=== PATIENT | male | born 1985 | race Caucasian/White ===

== ENCOUNTER 2016-06-02 11:50 | Inpatient (IN) | payer OTHER ==
[~2016-06-02] VITALS: Ht 185.4 cm; Wt 88.5 kg
[~2016-06-02 11:50] MED LIST: ANT25 PO; HUMALOG100 U/ML; LANTUS100 U/ML
[2016-06-02 12:52] LABS: BASOPHIL % 0.4 % (0-2); PLATELET COUNT 231 x10^3mcL (130-400); RED CELL DISTRIBUTION WIDTH 13.7 % (11.5-14.5)
[2016-06-02 13:15] LABS: ALKALINE PHOSPHATASE 128 U/L (46-116); ALT/SGPT 16 U/L (16-63); AST/SGOT 11 U/L (15-37); BILIRUBIN TOTAL 0.5 mg/dL (0.20-1.00); CARBON DIOXIDE 26.6 mmol/L (21-32); CHLORIDE SERUM 100 mmol/L (98-107); GFR1 > 60 mL/min; GLUCOSE SERUM 415 mg/dL (74-106); LIPASE 83 IU/L (73-393); POTASSIUM SERUM 4.1 mmol/L (3.5-5.1); SODIUM SERUM 137 mmol/L (136-145); TOTAL PROTEIN, SERUM 6.8 g/dL (6.4-8.2)
[2016-06-02 13:18] LABS: ALBUMIN 3.3 g/dL (3.4-5.0); AMYLASE 19 U/L (25-115)
[2016-06-02] MEDS ORDERED: HUMALOG100 U/ML SC (15:04)
[2016-06-02 16:45] VITALS: BP 115/81
[2016-06-02 17:40] VITALS: BP 115/75
[2016-06-02 20:31] VITALS: BP 102/66
[2016-06-02 22:24] LABS: microscopic required? YES; urine erythrocyte TRACE (NEGATIVE)
[2016-06-02 22:37] LABS: AMPHETAMINE QUAL UR NONE DETECTED (NEG <=1000)
[2016-06-03 05:34] VITALS: BP 119/71
[2016-06-03 05:37] VITALS: BP 105/65
[2016-06-03 05:50] LABS: BASOPHIL % 0.2 % (0-2); PLATELET COUNT 223 x10^3mcL (130-400); RED CELL DISTRIBUTION WIDTH 13.7 % (11.5-14.5)
[2016-06-03 06:12] LABS: CALCIUM 8.4 mg/dL (8.5-10.1); CARBON DIOXIDE 26.1 mmol/L (21-32); CHLORIDE SERUM 108 mmol/L (98-107); CREATININE SERUM 0.6 mg/dL (0.7-1.3); GFR1 > 60 mL/min; GLUCOSE SERUM 80 mg/dL (74-106); MAGNESIUM 1.9 mg/dL (1.8-2.4); PHOSPHOROUS 3.8 mg/dL (2.5-4.9); POTASSIUM SERUM 3.7 mmol/L (3.5-5.1); SODIUM SERUM 142 mmol/L (136-145)
[2016-06-03 08:35] VITALS: BP 102/65
[2016-06-03 13:26] VITALS: BP 119/83
[2016-06-03 16:35] VITALS: BP 102/71
[2016-06-03 22:16] VITALS: BP 117/83
[2016-06-04 06:11] VITALS: BP 129/84
[2016-06-04 06:31] LABS: CALCIUM 8.7 mg/dL (8.5-10.1); CARBON DIOXIDE 29.6 mmol/L (21-32); CHLORIDE SERUM 110 mmol/L (98-107); CREATININE SERUM 0.7 mg/dL (0.7-1.3); GFR1 > 60 mL/min; GLUCOSE SERUM 116 mg/dL (74-106); MAGNESIUM 1.7 mg/dL (1.8-2.4); PHOSPHOROUS 2.8 mg/dL (2.5-4.9); POTASSIUM SERUM 4.1 mmol/L (3.5-5.1); SODIUM SERUM 147 mmol/L (136-145)
[2016-06-04 06:34] LABS: BASOPHIL % 0.3 % (0-2); PLATELET COUNT 227 x10^3mcL (130-400); RED CELL DISTRIBUTION WIDTH 13.9 % (11.5-14.5)
[2016-06-04 08:25] VITALS: BP 115/68
[2016-06-04 12:39] VITALS: BP 136/88
[2016-06-04] MEDS ORDERED: HUMALOG100 U/ML SC (13:05)
[2016-06-04] MEDS ORDERED: LANTUS SOLOS100 U/M1 SQ (13:11)
[2016-06-04] MEDS ORDERED: COMFORT EZ MC (13:13)
[2016-06-04] MEDS ORDERED: FLAGYL500 MG PO (14:44)
[2016-06-04] MEDS ORDERED: LAC PO (14:44)
== END 2016-06-04 16:08 | disposition home or self-care (01) | DRG 48 ==
LOC: ED 11:50 → DU 14:35
PROVIDERS: Emergency Medicine; ADMIT Family Medicine
DX: E10.43 Type 1 diabetes mellitus with diabetic autonomic (poly)neuropathy (principal); N17.0 Acute kidney failure with tubular necrosis; E44.0 Moderate protein-calorie malnutrition; E10.65 Type 1 diabetes mellitus with hyperglycemia; K31.84 Gastroparesis; R03.0 Elevated blood-pressure reading, without diagnosis of hypertension; Z79.4 Long term (current) use of insulin; Z68.25 Body mass index [BMI] 25.0-25.9, adult
CPT/HCPCS: 80307; 83880; 87046; 87046-59; J1815; J2270; J2405; J3475; J7030; J7042; J8597; Q0092

== ENCOUNTER 2016-07-21 13:32 | Inpatient (IN) | payer OTHER ==
[~2016-07-21] VITALS: Ht 185.4 cm; Wt 88.6 kg
[~2016-07-21 13:32] MED LIST changes: +COMFORT EZ MC; +FLAGYL500 MG PO; +HUMALOG100 U/ML SC; +LAC PO; +LANTUS SOLOS100 U/M1 SQ
--- NOTE | 2016-07-21 13:54 | NUR ---
PT BIB SELF C/C CP SOB AND DIZZINESS X 2 DAYS PLACED ON MONITOR AWAITING FOR DR TO YOL[place]
[2016-07-21 14:36] LABS: BASOPHIL % 4.8 % (0-2); PLATELET COUNT 239 x10^3mcL (130-400); RED CELL DISTRIBUTION WIDTH 12.9 % (11.5-14.5)
[2016-07-21 14:45] LABS: CALCIUM 9.3 mg/dL (8.5-10.1); CARBON DIOXIDE 23.5 mmol/L (21-32); CHLORIDE SERUM 103 mmol/L (98-107); GFR1 > 60 mL/min; GLUCOSE SERUM 314 mg/dL (74-106); POTASSIUM SERUM 3.5 mmol/L (3.5-5.1); SODIUM SERUM 141 mmol/L (136-145)
[2016-07-21 14:49] LABS: ALBUMIN 3.5 g/dL (3.4-5.0); ALKALINE PHOSPHATASE 118 U/L (46-116); ALT/SGPT 20 U/L (16-63); AST/SGOT 9 U/L (15-37); BILIRUBIN TOTAL 0.57 mg/dL (0.20-1.00)
--- NOTE | 2016-07-21 15:09 | NUR ---
DR WILKS AT BEDSIDE TO GO OVER PLAN OF CARE
[2016-07-21 15:17] LABS: microscopic required? YES; urine erythrocyte TRACE (NEGATIVE)
[2016-07-21] MEDS ORDERED: EPZICOM1 TAB (15:33)
[2016-07-21] MEDS ORDERED: LANTUS SOLOS100 U/M1 SQ (15:33)
[2016-07-21] MEDS ORDERED: HUMALOG100 U/ML SC (15:33)
[2016-07-21 16:48] VITALS: BP 120/75
--- NOTE | 2016-07-21 16:48 | NUR ---
AWAITING FOR ROOM PT DENIES PAIN OR DISCOMFORT
--- NOTE | 2016-07-21 17:06 | NUR ---
PLEASE ENTER FULL NAMES OF SILVICULTURIST/RN Patient data collected by (SILVICULTURIST):SYDNI UP Assessment reviewed and completed by (RN): ALCIDES REYNA
[2016-07-21 17:20] LABS: T3 TOTAL 0.7 ng/mL
[2016-07-21 17:20] LABS: AMPHETAMINE QUAL UR NONE DETECTED (NEG <=1000)
[2016-07-21 17:21] LABS: MAGNESIUM 1.8 mg/dL (1.8-2.4); PHOSPHOROUS 1.7 mg/dL (2.5-4.9)
[2016-07-21 17:23] LABS: CHOLESTEROL/HDL RATIO 5.5
[2016-07-21 17:28] LABS: FREE T4 1.27 ng/dL (0.76-1.46)
--- NOTE | 2016-07-21 17:52 | NUR ---
PT ADMIT TO TELE ROOM 222B GAVE REPORT TO DULCE MARIA
--- NOTE | 2016-07-21 18:19 | NUR ---
Pt ARRIVED ON THE FLOOR.
[2016-07-21 19:17] VITALS: BP 118/77
--- NOTE | 2016-07-21 19:24 | NUR ---
ENDORSED PT TO DENISE SWANSON
--- NOTE | 2016-07-21 20:10 | NUR ---
PT IS AAOX4. ON TELE 32 NSR. SCDS WERE PLACED ON THE PT PER REQUEST. CTA ON RA WITH. BOWEL SOUNDS ACTIVE. THERE IS AN IV IN THE LAC THAT IS RUNNING 100 ML/HR NS. NO DISTRESS NOTED AT THIS TIME. CALL LIGHT WITHIN REACH. WILL CONTINUE TO MONITOR.
--- NOTE | 2016-07-21 21:29 | NUR ---
PT STATED PAIN 6/10 CHEST AREA SO MEDICATED WITH NORCO PER EMAR. PT BS WAS 283, I GAVE THE SCHEDULED LEVEMIR 20 U BUT DID NOT GIVE COVERAGE BECAUSE THE PT WILL NOT BE EATING AND THERE HAVE BEEN POOR OUTCOMES IN THE PAST WHEN WE STACK REGULAR INSULIN AND LEVEMIR. WILL CONTINUE TO MONITOR.
[2016-07-21 22:02] VITALS: BP 124/82
--- NOTE | 2016-07-22 02:23 | NUR ---
PT BS WAS 59. GAVE APPLE JUICE WITH 2 SUGAR PACKETS AND SNACKS. CHECKED BS SUGAR 15 MIN LATER. BS 220.
[2016-07-22 05:28] VITALS: BP 111/74
[2016-07-22 05:29] VITALS: BP 111/74
[2016-07-22 05:31] VITALS: BP 111/74
[2016-07-22 06:01] LABS: BASOPHIL % 0.5 % (0-2); PLATELET COUNT 188 x10^3mcL (130-400); RED CELL DISTRIBUTION WIDTH 13.9 % (11.5-14.5)
[2016-07-22 06:24] LABS: CALCIUM 8.8 mg/dL (8.5-10.1); CARBON DIOXIDE 27.7 mmol/L (21-32); CHLORIDE SERUM 109 mmol/L (98-107); CREATININE SERUM 0.8 mg/dL (0.7-1.3); GFR1 > 60 mL/min; GLUCOSE SERUM 165 mg/dL (74-106); MAGNESIUM 1.8 mg/dL (1.8-2.4); PHOSPHOROUS 4.2 mg/dL (2.5-4.9); POTASSIUM SERUM 3.1 mmol/L (3.5-5.1); SODIUM SERUM 144 mmol/L (136-145)
--- NOTE | 2016-07-22 06:51 | NUR ---
PT IS SLEEPING IN BED. NO ACUTE DISTRESS NOTED. ALL NEEDS HAVE BEEN MET. WILL ENDORSE TO MORNING SHIFT.
--- NOTE | 2016-07-22 08:00 | NUR ---
A/A/OX3; DENIED CHEST PAIN NOW. TELE#37; SR; HR = 93. NO RSP DISTRESS ON RA. TOLERATED DIET WELL. AMBULATORY. POTASSIUM LEVEL 3.1; KCL 40 MEQ PO WOULD BE GIVEN. IVF OF NS 100CC/HR INFUSING WELL TO LAC. IV SITE CLEAN. CALL LIGHT IN REACH.
--- NOTE | 2016-07-22 08:45 | NUR ---
DR. MITCHELL AND MEDICAL TEAM MADE MORNING ROUND. PLAN OF CARE DISCUSSED WITH PATIENT, ENCLUDED WITH DR. URIBE, MATH COACH CONSULTATION FOR CHEST PAIN. PATIENT AGREED WITH PLAN OF CARE.
[2016-07-22 10:09] VITALS: BP 109/69
[2016-07-22 14:50] VITALS: BP 108/84
[2016-07-22 17:26] VITALS: BP 117/82
--- NOTE | 2016-07-22 19:00 | NUR ---
NO C/O CHEST PAIN THIS SHIFT. TOLERATED DIET WELL. VOID [id number] URINE. AND BM X1. ENDORSED CARE TO NOC NURSE.
--- NOTE | 2016-07-22 19:50 | NUR ---
PT RECIEVED SLEEPING SOUNDLY,AAO REG RESP NO SOB,PT ON TELE MONITOR AND IN NSR NO ACUTE DISTRESS NOTICE AT THIS TIME,MADE COMFORTABLE IN BED,KEPT CLEAN AND DRY TO TOUCH,CALL LIGHT EASY REACHED AND WILL CONTINUE TO MONITOR.
[2016-07-23 05:14] VITALS: BP 122/66
[2016-07-23 07:15] LABS: CALCIUM 8.7 mg/dL (8.5-10.1); CARBON DIOXIDE 27.5 mmol/L (21-32); CHLORIDE SERUM 110 mmol/L (98-107); CREATININE SERUM 0.7 mg/dL (0.7-1.3); GFR1 > 60 mL/min; GLUCOSE SERUM 127 mg/dL (74-106); POTASSIUM SERUM 3.1 mmol/L (3.5-5.1); SODIUM SERUM 144 mmol/L (136-145)
--- NOTE | 2016-07-23 08:00 | NUR ---
AWAKE AND ALERT. TEMP 97.9. TELE #37 SINUS RHYTHM RATE 77. DENIES CHEST PAIN OR DIZZINESS. RESP 18 EVEN. BREATH SOUNDS CLEAR. PULSE OX 100% RA. ABD SOFT, BOWEL TONES PRESENT. VOIDING QS. NO EDEMA. PULSES PRESENT. SCD IN PLACE. IV PATENT LAC INFUSING NORMAL SALINE 10CC/HR. SIDE RAILS UP X2. CALL LIGHT IN REACH.
--- NOTE | 2016-07-23 09:50 | NUR ---
DR MARIE AND MEDICAL TEAM IN ON ROUNDS. CHARGE AND PRIMARY NURSE PRESENT. REVIEWED PLAN OF CARE, FOR DISCHARGE HOME TODAY. VERBALIZED UNDERSTANDING.
--- NOTE | 2016-07-23 12:00 | NUR ---
TAL=[id number]. RISS COVERAGE 6 UNITS SQ. REVIEWED DIABETIC HOME CARE. REPORTS "HAS BEEN DIABETIC SINCE AGE 4, HAS HAD INSULIN PUMP BEFORE BUT INSURANCE WILL NO LONGER COVER IT SO I TAKE LANTUS AND HUMALOG. I CHECK MY SUGAR 4 TIMES A DAY." REVIEWED MEDS, HYPO/HYPER GLYCEMIC REACTIONS AND NEED TO CARRY GLUCOSE TABLETS WITH HIM. PT STATES "I DO AND I HAVE A MEDICAL ALERT BRACELET."
[2016-07-23] MEDS ORDERED: COMFORT EZ MC (12:15)
[2016-07-23] MEDS ORDERED: ATORVASTATIN CA40 M1 PO (12:16)
[2016-07-23] MEDS ORDERED: HUMALOG100 U/ML SC (12:20)
[2016-07-23] MEDS ORDERED: LANTUS SOLOS100 U/M1 SQ (12:21)
[2016-07-23] MEDS ORDERED: [UNRECOGNIZED DRUG - OTHER] MC (12:22)
[2016-07-23] MEDS ORDERED: IBUPROFEN600 MG PO (12:24)
[2016-07-23 13:03] VITALS: BP 119/88
--- NOTE | 2016-07-23 16:00 | NUR ---
DR JACOBO COMPLETED. DC PACKET. REVIEWED WITH PT. MEDS UPDATED. 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 MEDS REVIEWED WITH PT. VERBALIZED UNDERSTANDING. TELE REMOVED AND RETURNED TO TELE UNIT. IV REMOVED CATH TIP INTACT. ARMBAND REMOVED. DC TO LOBBY WITH BELONGINGS AT THIS TIME.
== END 2016-07-23 16:00 | disposition home or self-care (01) | DRG 203 ==
LOC: ED 13:32 → DU 15:18 → MU 07-23 11:31
PROVIDERS: Emergency Medicine; ADMIT Family Medicine
DX: M94.0 Chondrocostal junction syndrome [Tietze] (principal); D68.69 Other thrombophilia; E11.65 Type 2 diabetes mellitus with hyperglycemia; E83.39 Other disorders of phosphorus metabolism; E86.0 Dehydration; E78.2 Mixed hyperlipidemia; Z79.4 Long term (current) use of insulin; F32.9 Major depressive disorder, single episode, unspecified; Z88.0 Allergy status to penicillin; Z82.49 Family history of ischemic heart disease and other diseases of the circulatory system; Z84.89 Family history of other specified conditions; Z83.3 Family history of diabetes mellitus
CPT/HCPCS: 83880; 84439; 85378; 94150; C9113; J1815; J1885; J1956; J7030; Q0092

== ENCOUNTER 2016-09-24 08:51 | Emergency (ER) | payer SELFPAY ==
[~2016-09-24] VITALS: Ht 185.4 cm; Wt 88.1 kg
[~2016-09-24 08:51] MED LIST changes: +ATORVASTATIN CA40 M1 PO; +EPZICOM1 TAB; +IBUPROFEN600 MG PO; +[UNRECOGNIZED DRUG - OTHER] MC
[2016-09-24 08:55] VITALS: BP 128/81
== END 2016-09-24 09:31 | disposition home or self-care (01) ==
LOC: ED 08:51
DX: S60.812A Abrasion of left wrist, initial encounter (principal); E11.9 Type 2 diabetes mellitus without complications; I10 Essential (primary) hypertension; Z20.89 Contact with and (suspected) exposure to other communicable diseases; Z79.4 Long term (current) use of insulin; B58.9 Toxoplasmosis, unspecified; W55.03XA Scratched by cat, initial encounter; Y93.89 Activity, other specified; Y99.8 Other external cause status; Y92.89 Other specified places as the place of occurrence of the external cause

== ENCOUNTER 2016-10-05 08:56 | Inpatient (IN) | payer MEDICAID ==
[~2016-10-05] VITALS: Ht 185.4 cm; Wt 87.6 kg
[2016-10-05 10:29] LABS: PLATELET COUNT 204 x10^3mcL (130-400); RED CELL DISTRIBUTION WIDTH 12.9 % (11.5-14.5)
[2016-10-05 10:36] LABS: CALCIUM 8.5 mg/dL (8.5-10.1); CARBON DIOXIDE 26.4 mmol/L (21-32); CHLORIDE SERUM 95 mmol/L (98-107); CREATININE SERUM 1.2 mg/dL (0.7-1.3); GFR1 > 60 mL/min; POTASSIUM SERUM 5.1 mmol/L (3.5-5.1); SODIUM SERUM 133 mmol/L (136-145)
[2016-10-05 10:37] LABS: ALBUMIN 3.3 g/dL (3.4-5.0); ALKALINE PHOSPHATASE 124 U/L (46-116); ALT/SGPT 17 U/L (16-63); AST/SGOT 13 U/L (15-37); BILIRUBIN TOTAL 0.51 mg/dL (0.20-1.00); LIPASE 88 IU/L (73-393); TOTAL PROTEIN, SERUM 6.6 g/dL (6.4-8.2)
[2016-10-05 10:54] LABS: GLUCOSE SERUM 857 mg/dL (74-106)
[2016-10-05] MEDS ORDERED: LANTI SQ (11:36)
[2016-10-05] MEDS ORDERED: HUMALOG100 U/ML SC (11:37)
[2016-10-05 11:45] LABS: microscopic required? NO
[2016-10-05 12:11] LABS: UA SPECIFIC GRAVITY <=1.005 (1.005-1.035); urine erythrocyte NEGATIVE (NEGATIVE)
[2016-10-05 12:21] LABS: AMPHETAMINE QUAL UR NONE DETECTED (NEG <=1000)
[2016-10-05 12:33] LABS: CHOLESTEROL/HDL RATIO 6.5; MAGNESIUM 1.8 mg/dL (1.8-2.4); PHOSPHOROUS 3.5 mg/dL (2.5-4.9)
[2016-10-05 12:40] LABS: T3 TOTAL 0.78 ng/mL
[2016-10-05 12:45] VITALS: BP 132/86
[2016-10-05 13:04] LABS: FREE T4 1.27 ng/dL (0.76-1.46); FREE THYROXINE INDEX 2.4 ug/dL (1.4-4.5)
[2016-10-05 16:25] VITALS: BP 99/59
[2016-10-05 17:01] LABS: CALCIUM 8.2 mg/dL (8.5-10.1); CHLORIDE SERUM 106 mmol/L (98-107); CREATININE SERUM 0.9 mg/dL (0.7-1.3); GFR1 > 60 mL/min; GLUCOSE SERUM 188 mg/dL (74-106); POTASSIUM SERUM 4.1 mmol/L (3.5-5.1); SODIUM SERUM 144 mmol/L (136-145)
[2016-10-05 22:22] VITALS: BP 112/74
[2016-10-06 01:32] VITALS: Ht 185.4 cm; Wt 87.6 kg
[2016-10-06 04:54] VITALS: BP 120/86
[2016-10-06 06:07] LABS: PLATELET COUNT 209 x10^3mcL (130-400); RED CELL DISTRIBUTION WIDTH 12.8 % (11.5-14.5)
[2016-10-06 06:20] LABS: CALCIUM 8.7 mg/dL (8.5-10.1); CARBON DIOXIDE 31.5 mmol/L (21-32); CHLORIDE SERUM 108 mmol/L (98-107); CREATININE SERUM 0.7 mg/dL (0.7-1.3); GFR1 > 60 mL/min; GLUCOSE SERUM 138 mg/dL (74-106); MAGNESIUM 1.8 mg/dL (1.8-2.4); POTASSIUM SERUM 3.9 mmol/L (3.5-5.1); SODIUM SERUM 145 mmol/L (136-145)
[2016-10-06 07:57] VITALS: BP 124/78
[2016-10-06 13:18] VITALS: BP 123/96
[2016-10-06 17:33] VITALS: BP 129/86
[2016-10-06 22:52] VITALS: BP 122/77
[2016-10-07 05:30] VITALS: BP 96/59
[2016-10-07 08:15] VITALS: BP 118/69
[2016-10-07] MEDS ORDERED: CEL20 PO (12:32)
[2016-10-07] MEDS ORDERED: ACCU-CHEK1 EACH MC (14:07)
[2016-10-07] MEDS ORDERED: BLOOD GLUCOSE1 EACH MC ×2 (14:07→21:06)
[2016-10-07 14:14] VITALS: BP 116/74
[2016-10-07] MEDS ORDERED: HUMALOG100 U/ML SC (17:23)
[2016-10-07] MEDS ORDERED: LANTUS SOLOS100 U/M1 SQ (17:23)
[2016-10-07] MEDS ORDERED: LEXAPRO10 MG PO ×2 (17:24→17:25)
== END 2016-10-07 15:39 | disposition home or self-care (01) | DRG 420 ==
LOC: ED 08:56 → DU 11:20 → MU 14:59 → DU 15:00
PROVIDERS: Emergency Medicine; Family Medicine; ADMIT Family Medicine
DX: E11.00 Type 2 diabetes mellitus with hyperosmolarity without nonketotic hyperglycemic-hyperosmolar coma (NKHHC) (principal); N17.0 Acute kidney failure with tubular necrosis; E44.1 Mild protein-calorie malnutrition; E87.1 Hypo-osmolality and hyponatremia; E78.2 Mixed hyperlipidemia; F33.9 Major depressive disorder, recurrent, unspecified; Z79.4 Long term (current) use of insulin; Z68.25 Body mass index [BMI] 25.0-25.9, adult; Z91.5 Personal history of self-harm
CPT/HCPCS: 36600; 83880; 84439; J1815; J7030; Q0092

== ENCOUNTER 2016-11-04 10:07 | Emergency (ER) | payer OTHER ==
[~2016-11-04] VITALS: Ht 185.4 cm; Wt 87.1 kg
[~2016-11-04 10:07] MED LIST changes: +ACCU-CHEK1 EACH MC; +BLOOD GLUCOSE1 EACH MC; +CEL20 PO; +LANTI SQ; +LEXAPRO10 MG PO
[2016-11-04 11:30] LABS: BASOPHIL % 0.4 % (0-2); PLATELET COUNT 308 x10^3mcL (130-400); RED CELL DISTRIBUTION WIDTH 13.5 % (11.5-14.5)
[2016-11-04 11:57] LABS: ALBUMIN 3.9 g/dL (3.4-5.0); ALKALINE PHOSPHATASE 177 U/L (46-116); ALT/SGPT 37 U/L (16-63); AST/SGOT 16 U/L (15-37); BILIRUBIN TOTAL 0.84 mg/dL (0.20-1.00); CALCIUM 9.7 mg/dL (8.5-10.1); CARBON DIOXIDE 32.1 mmol/L (21-32); CHLORIDE SERUM 96 mmol/L (98-107); GFR1 > 60 mL/min; LIPASE 95 IU/L (73-393); POTASSIUM SERUM 4.6 mmol/L (3.5-5.1); SODIUM SERUM 136 mmol/L (136-145)
[2016-11-04 12:00] LABS: GLUCOSE SERUM 569 mg/dL (74-106); TOTAL PROTEIN, SERUM 8.4 g/dL (6.4-8.2)
[2016-11-04 14:46] LABS: microscopic required? NO
[2016-11-04 15:07] LABS: T3 TOTAL 0.89 ng/mL
[2016-11-04 15:25] LABS: MAGNESIUM 2.4 mg/dL (1.8-2.4); PHOSPHOROUS 3.7 mg/dL (2.5-4.9)
[2016-11-04 15:27] LABS: CHOLESTEROL/HDL RATIO 5.4; FREE T4 1.07 ng/dL (0.76-1.46); FREE THYROXINE INDEX 2.8 ug/dL (1.4-4.5); T4(THYROXINE) 7.6 ug/dL (4.7-13.3)
[2016-11-04 15:29] LABS: UA SPECIFIC GRAVITY <=1.005 (1.005-1.035); urine erythrocyte NEGATIVE (NEGATIVE)
[2016-11-04 15:37] LABS: AMPHETAMINE QUAL UR NONE DETECTED (NEG <=1000)
[2016-11-04 19:01] VITALS: BP 112/70
== END 2016-11-04 19:01 | disposition home or self-care (01) ==
LOC: ED 10:07
PROVIDERS: Emergency Medicine; Family Medicine
DX: E10.65 Type 1 diabetes mellitus with hyperglycemia (principal); Z88.0 Allergy status to penicillin; G43.A1 Cyclical vomiting, in migraine, intractable; E86.0 Dehydration; F32.9 Major depressive disorder, single episode, unspecified
CPT/HCPCS: 82962; 83880; 84439; J1815; J2405; J7030; Q0092

== ENCOUNTER 2016-11-23 19:36 | Emergency (ER) | payer OTHER ==
[2016-11-23 22:40] VITALS: BP 134/90
== END 2016-11-23 22:40 | disposition home or self-care (01) ==
LOC: ED 19:36
DX: S90.851A Superficial foreign body, right foot, initial encounter (principal); E10.9 Type 1 diabetes mellitus without complications; Z79.4 Long term (current) use of insulin; W45.8XXA Other foreign body or object entering through skin, initial encounter; Y93.89 Activity, other specified; Y92.89 Other specified places as the place of occurrence of the external cause; Y99.8 Other external cause status
CPT/HCPCS: J2001

== ENCOUNTER 2016-12-05 13:04 | Inpatient (IN) | payer OTHER ==
[~2016-12-05] VITALS: Ht 185.4 cm; Wt 100.4 kg
--- NOTE | 2016-12-05 13:32 | NUR ---
PT GIVEN D50 IVP FOR LOW BS.
--- NOTE | 2016-12-05 13:58 | NUR ---
DR VO AT BEDSIDE FOR MSE
--- NOTE | 2016-12-05 14:00 | NUR ---
PT MORE ALERT NOW, SANDWICH AND OJ GIVEN OK PER DR VO PT SITTING UPRIGHT ASYMPTOMATIC EATING ON HIS OWN. WILL MONITOR
[2016-12-05 14:28] LABS: BASOPHIL % 0.5 % (0-2); PLATELET COUNT 321 x10^3mcL (130-400); RED CELL DISTRIBUTION WIDTH 13.5 % (11.5-14.5)
[2016-12-05 14:31] LABS: CALCIUM 9.4 mg/dL (8.5-10.1); CARBON DIOXIDE 29.7 mmol/L (21-32); CHLORIDE SERUM 107 mmol/L (98-107); CREATININE SERUM 0.7 mg/dL (0.7-1.3); GFR1 > 60 mL/min; GLUCOSE SERUM 99 mg/dL (74-106); POTASSIUM SERUM 3.1 mmol/L (3.5-5.1); SODIUM SERUM 143 mmol/L (136-145)
[2016-12-05 14:38] LABS: ALBUMIN 3.6 g/dL (3.4-5.0); ALKALINE PHOSPHATASE 101 U/L (46-116); ALT/SGPT 31 U/L (16-63); AST/SGOT 16 U/L (15-37); BILIRUBIN TOTAL 0.2 mg/dL (0.20-1.00); TOTAL PROTEIN, SERUM 7.7 g/dL (6.4-8.2)
--- NOTE | 2016-12-05 15:17 | NUR ---
SWELLING NOTED TO L HAND. IV INFUSION STOPPED NEW IV ESTABLISHED 20G TO R FA FLUSHED WITH 10CC NS WITH NO PROBLEM. IVF RESUMED
--- NOTE | 2016-12-05 15:22 | NUR ---
REPORT GIVEN TO DAYO WALKER IN TELE FLOOR RESUMING CARE OF PT.
[2016-12-05 15:50] LABS: T3 TOTAL 1.13 ng/mL
[2016-12-05 15:51] LABS: MAGNESIUM 1.8 mg/dL (1.8-2.4); PHOSPHOROUS 2.4 mg/dL (2.5-4.9)
[2016-12-05 15:53] LABS: CHOLESTEROL/HDL RATIO 3.6
--- NOTE | 2016-12-05 15:55 | NUR ---
REC'D PT FROM ER VIA [facility]. PT IS AAOX4. C/O 4/10 HEADACHE. TELE #31 NSR. RESP EVEN AND UNLABORED. NO SOB NOTED. C/O MILD GENERALIZED WEAKNESS AND 5/10 RIGHT HIP PAIN. IV NOTED TO RFA. D10 CONTINUES TO INFUSE AT 50 ML/HR. ORIENTED PT TO CALL LIGHT. BED IN LOWEST POSITION. WILL ENDORSE TO PRIMARY RN.
[2016-12-05 15:59] LABS: FREE T4 0.82 ng/dL (0.76-1.46); FREE THYROXINE INDEX 2.7 ug/dL (1.4-4.5); T4(THYROXINE) 7.4 ug/dL (4.7-13.3)
--- NOTE | 2016-12-05 16:05 | NUR ---
PT TRANSPORTED TO TELE FLOOR VIA RNICHOLS NO DISTRESS ON PORTABLE CM WITH MARLYN EMT. DAYO RN AND ZARINA RN RESUMED CARE OF PT.
[2016-12-05 16:08] VITALS: BP 135/77
--- NOTE | 2016-12-05 16:20 | NUR ---
RECEIVED PT ,RESOURCE NURSE.AAO X4. C/O MILD H/A AT 4/10 PAIN SCALE.LUNGS CLEAR.ON SR ON THE MONITOR.IVF D10 AT 50 ML/HR INFUSING WELL.CALL LIGHT WITHIN REACH.INSTRUCTED TO CALL FOR ANY PAIN/DISCOMFORT.WILL CONTINUE TO MONITOR.
--- NOTE | 2016-12-05 17:42 | NUR ---
PT WENT DOWN FOR CT OF THE HEAD.
[2016-12-05 17:43] LABS: microscopic required? NO
[2016-12-05 17:47] LABS: urine erythrocyte NEGATIVE (NEGATIVE)
[2016-12-05 17:52] VITALS: Ht 185.4 cm; Wt 100.4 kg
[2016-12-05 17:57] LABS: AMPHETAMINE QUAL UR NONE DETECTED (NEG <=1000)
--- NOTE | 2016-12-05 18:38 | NUR ---
NO SIGNIFICANT CHANGE NOTED.WILL ENDORSE TO NEXT SHIFT.
--- NOTE | 2016-12-05 19:46 | NUR ---
PT. SLEEPING, EASY TO WAKE. DENIES HEADACHE OR DIZZINESS. BREATH SOUNDS CLEAR THROUGHOUT LUNG COSME, RESP. EVEN, UNLABORED. DENIES CHESTPAIN OR DISCOMFORT. ABD. SOFT AND ROUND, BOWEL SOUNDS ACTIVE. NO EDEMA TO EXTREMITIES. PEDAL PULSES STRONG [place]. IVF INFUSING WELL, SITE WNL. CALL LIGHT WITHIN REACH.
[2016-12-05 20:39] VITALS: BP 142/84
--- NOTE | 2016-12-05 23:32 | NUR ---
PT. CALLED TO SAY HIS BLOOD SUGAR FEELS LOW. SUGAR LEVELS CHECKED, 54, THEN REPEAT LEVEL WAD 65. 1 AMP D50 IVP WAS GIVEN. DR. FUNK WAS MADE AWARE. IVF NS DISCONTINUED. PENDING ORDER FOR D5 1/2 NS IN PROGRESS.
--- NOTE | 2016-12-06 03:15 | NUR ---
PT. SLEEPING, APPEARS COMFORTABLE. IVF INFUSING WELL. CALL LIGHT REMAINS WITHIN REACH.
[2016-12-06 05:32] VITALS: BP 123/78
[2016-12-06 06:11] LABS: BASOPHIL % 0.4 % (0-2); PLATELET COUNT 316 x10^3mcL (130-400); RED CELL DISTRIBUTION WIDTH 13.7 % (11.5-14.5)
[2016-12-06 06:28] LABS: CALCIUM 9.2 mg/dL (8.5-10.1); CARBON DIOXIDE 28.1 mmol/L (21-32); CHLORIDE SERUM 106 mmol/L (98-107); CREATININE SERUM 0.7 mg/dL (0.7-1.3); GFR1 > 60 mL/min; GLUCOSE SERUM 108 mg/dL (74-106); PHOSPHOROUS 4.2 mg/dL (2.5-4.9); POTASSIUM SERUM 3.9 mmol/L (3.5-5.1); SODIUM SERUM 143 mmol/L (136-145)
--- NOTE | 2016-12-06 07:15 | NUR ---
AAO X4.DENIES ANY PAIN/DISCOMFORT.LUNGS CLEAR.ON SR ON THE MONITOR. IVF D5 1/2 NS GOING AT 80 ML/HR INFUSING WELL.CALL LIGHT WITHIN REACH.INSTRUCTED TO CALL FOR ANY PAIN/DISCOMFORT.WILL CONTINUE TO MONITOR PT.
[2016-12-06 09:03] VITALS: BP 124/79
--- NOTE | 2016-12-06 10:00 | NUR ---
Q 2 HOUR BLOOD SUGAR STARTED.JK=[id number]
[2016-12-06 12:01] VITALS: BP 148/84
--- NOTE | 2016-12-06 14:40 | NUR ---
PT COMFORTABLE NO COMPLAINTS.
[2016-12-06 17:01] VITALS: BP 139/83
--- NOTE | 2016-12-06 18:17 | NUR ---
LATEST BLOOD NFJNU=364 MG/DL.NO COVERAGE GIVEN.PT JUST ATE DINNER.
--- NOTE | 2016-12-06 18:41 | NUR ---
NO SIGNIFICANT CHANGE NOTED.WILL ENDORSE TO NEXT SHIFT.
--- NOTE | 2016-12-06 19:43 | NUR ---
PT. AWAKE, ALERT, SITTING UP AT BEDSIDE. ORIENTED X4. DENIES HEADACHE OR DIZZINESS. BREATH SOUNDS CLEAR THROUGHOUT LUNG COSME, RESP. EVEN, UNLABORED. NO SOB NOTED. NO EDEMA TO EXTREMITIES. PEDAL PULSES STRONG BLE. ABD. SOFT AND ROUND, BOWEL SOUNDS ACTIVE. IVF D5 1/2 NS AT 80CC/HR. CALL LIGHT WITHIN REACH.
[2016-12-06 21:24] VITALS: BP 118/76
--- NOTE | 2016-12-07 01:33 | NUR ---
PT. RESTING QUIETLY. NO COMPLAINTS. IVF D5 1/2 NS AT 80CC/HR. CALL LIGHT WITHIN REACH.
--- NOTE | 2016-12-07 01:48 | NUR ---
REPEATED BLOOD SGUAR LEVEL NOW 138. PT. DOZING, BUT STATED THAT HE FEELS MUCH BETTER. WILL CONTINUE TO MONITOR.
--- NOTE | 2016-12-07 02:04 | NUR ---
PT.CALLED, STATED THAT HIS BLOOD SUGAR LEVEL FELT LIKE IT WAS LOW. BLOOD SUGAR CHECKED, 60 WAS FIRST READING, THEN REPEATED LEVEL WAS 67. D50 Q AMP GIVEN. DR. SMITH MADE AWARE. IVF D5 1/2 NS INFUSING AT 80CC/HR. WILL CONTINUE TO MONITOR.
[2016-12-07 05:19] VITALS: BP 111/71
[2016-12-07 05:20] VITALS: BP 147/81
[2016-12-07 07:06] LABS: BASOPHIL % 0.5 % (0-2); PLATELET COUNT 295 x10^3mcL (130-400); RED CELL DISTRIBUTION WIDTH 13.7 % (11.5-14.5)
[2016-12-07 07:14] LABS: CALCIUM 8.8 mg/dL (8.5-10.1); CARBON DIOXIDE 31.2 mmol/L (21-32); CHLORIDE SERUM 104 mmol/L (98-107); CREATININE SERUM 0.8 mg/dL (0.7-1.3); GFR1 > 60 mL/min; GLUCOSE SERUM 159 mg/dL (74-106); MAGNESIUM 1.8 mg/dL (1.8-2.4); PHOSPHOROUS 4.2 mg/dL (2.5-4.9); POTASSIUM SERUM 4.4 mmol/L (3.5-5.1); SODIUM SERUM 142 mmol/L (136-145)
--- NOTE | 2016-12-07 07:30 | NUR ---
RECEIVED PT IN BED ALERT AND ORIENTED X4. NSR ON TELE MONITOR. DENIES TRAN, DIZZINESS, OR CP. NO SOB. DENIES ANY GI UPSET. VOIDS FREELY. AMBULATORY. NO S/S OF HYPOGLYCEMIA AT THIS TIME. PT STATES HE IS ABLE TO CALL WHEN FEELING HYPOGLYCEMIC. INSTRUCTED TO USE CALL LIGHT WHEN IN NEED OF ANY ASSISTANCE.
--- NOTE | 2016-12-07 08:30 | NUR ---
BLOOD SUGAR = 322. PT STATES THAT HE JUST ATE BREAKFAST. DR SCHMID MADE AWARE AND STATED OK TO HOLD INSULIN COVERAGE WE WILL CHANGE IVF FROM D51/2NS TO NS.
[2016-12-07 08:45] VITALS: BP 111/69
--- NOTE | 2016-12-07 09:03 | NUR ---
NORCO PO GIVEN FOR PTS COMPLAINT OF BACK PAIN.
[2016-12-07 11:42] VITALS: BP 113/72
[2016-12-07 16:13] VITALS: BP 110/76
[2016-12-07] MEDS ORDERED: LANTUS SOLOS100 U/M1 SQ (17:27)
[2016-12-07 17:33] VITALS: BP 110/76
--- NOTE | 2016-12-07 18:20 | NUR ---
PT ALERT AND ORIENTED X4. NO S/S OF HYPOGLYCEMIA. IV AND TELE DC'D. DISCHARGE INSTRUCTIONS GIVEN TO PT, VERBALIZED UNDERSTANDING. PT DISCHARGED HOME, BROUGHT OFF FLOOR AMBULATORY ACCOMPANIED BY RN AND NETWORK SUPPORT ENGINEER.
== END 2016-12-07 18:24 | disposition home or self-care (01) | DRG 48 ==
LOC: ED 13:04 → DU 14:59
PROVIDERS: Emergency Medicine; ADMIT Family Medicine
DX: G90.8 Other disorders of autonomic nervous system (principal); N17.0 Acute kidney failure with tubular necrosis; E10.649 Type 1 diabetes mellitus with hypoglycemia without coma; E10.65 Type 1 diabetes mellitus with hyperglycemia; D68.69 Other thrombophilia; E87.6 Hypokalemia; F32.9 Major depressive disorder, single episode, unspecified; D72.829 Elevated white blood cell count, unspecified; I10 Essential (primary) hypertension; Z53.29 Procedure and treatment not carried out because of patient's decision for other reasons; E78.5 Hyperlipidemia, unspecified; E66.3 Overweight; Z79.4 Long term (current) use of insulin; Z68.29 Body mass index [BMI] 29.0-29.9, adult; Z88.0 Allergy status to penicillin; Z83.3 Family history of diabetes mellitus; Z82.49 Family history of ischemic heart disease and other diseases of the circulatory system; Z81.8 Family history of other mental and behavioral disorders
CPT/HCPCS: 83880; 84439; 90658; J1815; J3490; J7030; Q0092; Q9967

== ENCOUNTER 2017-01-17 08:23 | Inpatient (IN) | payer OTHER ==
[~2017-01-17] VITALS: Ht 185.4 cm; Wt 92.0 kg
[2017-01-17] MEDS ORDERED: LEXAPRO10 MG PO (09:27)
[2017-01-17] MEDS ORDERED: HUMALOG100 U/ML SC (09:27)
[2017-01-17] MEDS ORDERED: LANTUS SOLOS100 U/M1 SC (09:27)
[2017-01-17 09:38] LABS: BILIRUBIN TOTAL 0.89 mg/dL (0.20-1.00); CALCIUM 9.7 mg/dL (8.5-10.1); CREATININE SERUM 1.5 mg/dL (0.7-1.3); POTASSIUM SERUM 4.9 mmol/L (3.5-5.1)
[2017-01-17 09:39] LABS: CHOLESTEROL/HDL RATIO 6.9; TOTAL PROTEIN, SERUM 8.5 g/dL (6.4-8.2)
[2017-01-17 09:41] LABS: BASOPHIL % 0.3 % (0-2); PLATELET COUNT 266 x10^3mcL (130-400); RED CELL DISTRIBUTION WIDTH 13.3 % (11.5-14.5)
[2017-01-17 09:48] LABS: FREE T4 1.13 ng/dL (0.76-1.46); FREE THYROXINE INDEX 2.7 ug/dL (1.4-4.5); T4(THYROXINE) 7.6 ug/dL (4.7-13.3)
[2017-01-17 09:49] LABS: T3 TOTAL 0.73 ng/mL
[2017-01-17 11:13] LABS: UA SPECIFIC GRAVITY 1.025 (1.005-1.035); microscopic required? YES; urine erythrocyte TRACE (NEGATIVE)
[2017-01-17 11:23] LABS: AMPHETAMINE QUAL UR NONE DETECTED (NEG <=1000)
[2017-01-17 11:26] VITALS: BP 134/78
[2017-01-17 13:35] LABS: MAGNESIUM 2.2 mg/dL (1.8-2.4); PHOSPHOROUS 5.6 mg/dL (2.5-4.9)
[2017-01-17 13:40] LABS: CALCIUM 8.3 mg/dL (8.5-10.1); CARBON DIOXIDE 13.6 mmol/L (21-32); CHLORIDE SERUM 108 mmol/L (98-107); CREATININE SERUM 1.2 mg/dL (0.7-1.3); GFR1 > 60 mL/min; GLUCOSE SERUM 189 mg/dL (74-106); PHOSPHOROUS 3.5 mg/dL (2.5-4.9); POTASSIUM SERUM 4.6 mmol/L (3.5-5.1); SODIUM SERUM 140 mmol/L (136-145)
[2017-01-17 16:00] VITALS: BP 107/64
[2017-01-17 17:37] LABS: CARBON DIOXIDE 18.7 mmol/L (21-32); CHLORIDE SERUM 108 mmol/L (98-107); GFR1 > 60 mL/min; GLUCOSE SERUM 169 mg/dL (74-106); PHOSPHOROUS 2.6 mg/dL (2.5-4.9); POTASSIUM SERUM 4.1 mmol/L (3.5-5.1); SODIUM SERUM 140 mmol/L (136-145)
[2017-01-17 19:30] VITALS: BP 98/52
[2017-01-17 21:24] LABS: CALCIUM 8.3 mg/dL (8.5-10.1); CARBON DIOXIDE 23.8 mmol/L (21-32); CHLORIDE SERUM 107 mmol/L (98-107); GFR1 > 60 mL/min; GLUCOSE SERUM 202 mg/dL (74-106); PHOSPHOROUS 2.2 mg/dL (2.5-4.9); POTASSIUM SERUM 3.9 mmol/L (3.5-5.1); SODIUM SERUM 140 mmol/L (136-145)
[2017-01-17 23:28] VITALS: BP 132/73
[2017-01-18 01:20] LABS: CALCIUM 8.4 mg/dL (8.5-10.1); CARBON DIOXIDE 25.2 mmol/L (21-32); CHLORIDE SERUM 110 mmol/L (98-107); CREATININE SERUM 0.9 mg/dL (0.7-1.3); GFR1 > 60 mL/min; GLUCOSE SERUM 87 mg/dL (74-106); MAGNESIUM 1.9 mg/dL (1.8-2.4); PHOSPHOROUS 2.3 mg/dL (2.5-4.9); POTASSIUM SERUM 3.5 mmol/L (3.5-5.1); SODIUM SERUM 142 mmol/L (136-145)
[2017-01-18 03:27] VITALS: BP 108/60
[2017-01-18 05:22] LABS: BASOPHIL % 0.5 % (0-2); PLATELET COUNT 209 x10^3mcL (130-400)
[2017-01-18 05:52] LABS: CALCIUM 8.3 mg/dL (8.5-10.1); CARBON DIOXIDE 21.8 mmol/L (21-32); CHLORIDE SERUM 109 mmol/L (98-107); CREATININE SERUM 0.8 mg/dL (0.7-1.3); GFR1 > 60 mL/min; GLUCOSE SERUM 103 mg/dL (74-106); MAGNESIUM 1.9 mg/dL (1.8-2.4); PHOSPHOROUS 2.8 mg/dL (2.5-4.9); POTASSIUM SERUM 3.5 mmol/L (3.5-5.1); SODIUM SERUM 141 mmol/L (136-145)
[2017-01-18 07:37] VITALS: BP 114/70
[2017-01-18 08:58] VITALS: Ht 185.4 cm; Wt 92.0 kg
[2017-01-18 11:58] VITALS: BP 114/70
[2017-01-18 16:22] VITALS: BP 116/76
[2017-01-18 20:51] VITALS: BP 127/79
[2017-01-18 21:09] VITALS: BP 127/79
[2017-01-19 05:55] LABS: BASOPHIL % 1.1 % (0-2); PLATELET COUNT 189 x10^3mcL (130-400); RED CELL DISTRIBUTION WIDTH 12.8 % (11.5-14.5)
[2017-01-19 06:21] LABS: CALCIUM 8.6 mg/dL (8.5-10.1); CARBON DIOXIDE 28.2 mmol/L (21-32); CHLORIDE SERUM 108 mmol/L (98-107); CREATININE SERUM 0.6 mg/dL (0.7-1.3); GFR1 > 60 mL/min; GLUCOSE SERUM 67 mg/dL (74-106); SODIUM SERUM 143 mmol/L (136-145)
[2017-01-19 06:38] LABS: POTASSIUM SERUM 2.9 mmol/L (3.5-5.1)
[2017-01-19 06:44] VITALS: BP 126/72
[2017-01-19 09:25] VITALS: BP 129/72
[2017-01-19 09:56] VITALS: BP 129/72
[2017-01-19 12:20] VITALS: BP 128/79
== END 2017-01-19 14:20 | disposition home or self-care (01) | DRG 420 ==
LOC: ED 08:23 → IC 09:58 → DU 01-18 20:35
PROVIDERS: Specialist; ADMIT Family Medicine
PROC: 05HM33Z Insertion of Infusion Device into Right Internal Jugular Vein, Percutaneous Approach (ICD-10-PCS; principal; 2017-01-17)
PROC: B543ZZA Ultrasonography of Right Jugular Veins, Guidance (ICD-10-PCS; 2017-01-17)
DX: E10.10 Type 1 diabetes mellitus with ketoacidosis without coma (principal); N17.0 Acute kidney failure with tubular necrosis; E86.0 Dehydration; D68.69 Other thrombophilia; K21.9 Gastro-esophageal reflux disease without esophagitis; E78.5 Hyperlipidemia, unspecified; R31.9 Hematuria, unspecified; M54.2 Cervicalgia; Z79.4 Long term (current) use of insulin; Z68.26 Body mass index [BMI] 26.0-26.9, adult
CPT/HCPCS: 36556; 36600; 83880; 84439; J1642; J1815; J1885; J2405; J3480; J3490; J7030; J7042; Q0092

== ENCOUNTER 2017-09-29 10:52 | Emergency (ER) | payer OTHER ==
[~2017-09-29] VITALS: Ht 185.4 cm; Wt 112.9 kg
[~2017-09-29 10:52] MED LIST changes: +LANTUS SOLOS100 U/M1 SC
[2017-09-29 11:05] VITALS: Ht 185.4 cm; Wt 112.9 kg
[2017-09-29 13:11] VITALS: BP 141/74
== END 2017-09-29 13:11 | disposition home or self-care (01) ==
LOC: ED 10:52
DX: M72.2 Plantar fascial fibromatosis (principal); E10.8 Type 1 diabetes mellitus with unspecified complications; F32.9 Major depressive disorder, single episode, unspecified
CPT/HCPCS: Q0092